=== PATIENT | male | born 1960 ===

== ENCOUNTER 2019-03-03 13:02 | Outpatient (CLI) | payer OTHER | END 2019-03-03 13:10 | disposition home or self-care (01) | LOC: RAD 13:02 | DX: M18.9 Osteoarthritis of first carpometacarpal joint, unspecified (principal) ==

== ENCOUNTER 2020-07-28 11:39 | Outpatient (CLI) | payer OTHER | END 2020-07-28 11:44 | disposition home or self-care (01) | LOC: RAD 11:39 | PROVIDERS: ATTEND General Practice | DX: M77.32 Calcaneal spur, left foot (principal); M77.31 Calcaneal spur, right foot ==

== ENCOUNTER 2025-02-11 11:42 | Outpatient (CLI) | payer OTHER | END 2025-02-11 11:44 | disposition home or self-care (01) | LOC: EDBD 11:42 → SONOGRAMA 11:42 | PROVIDERS: ATTEND General Practice | DX: R10.9 Unspecified abdominal pain (principal) ==